=== PATIENT | male | born 1945 | race Caucasian/White ===

== ENCOUNTER → 2024-01-04 10:23 | Outpatient (REF) | payer MEDICARE, SELFPAY ==
[2024-01-04 11:05] LABS: Urine Albumin Negative (Neg - Trace); Urine Bilirubin Negative (Negative); Urine Character Clear (Clear); Urine Color Yellow; Urine Glucose Negative (Negative); Urine Ketone Negative (Negative); Urine Leukocyte Trace (Negative); Urine Nitrite Negative (Negative); Urine Occult Blood Negative (Negative); Urine Specific Gravity 1.015 (<1.030); Urine Urobilinogen Negative (Neg - 1+)
[2024-01-04 11:06] LABS: % Basophils 0.6 % (0-2); % Eosinophils 0.9 % (0-6); % Immature Granulocytes 0.2 % (0-0.5); % Monocytes 7.3 % (1.7-9.3); Absolute Basophils 0.1 10^3/uL (0-0.2); Absolute Eosinophils 0.1 10^3/uL (0-0.7); Absolute Monocytes 0.6 10^3/uL (0.1-0.6); Absolute Neutrophils 5.4 10^3/uL (1.4-6.5); Hematocrit 46.9 % (39.0-52.0); Hemoglobin 15.6 g/dL (13.0-18.0); Mean Corp Hgb Conc. 33.3 g/dL (33.0-37.0); Mean Corpuscular Hgb 30.1 pg (27.0-31.0); Mean Corpuscular Volume 90.5 fL (80.0-94.0); Mean Platelet Volume 9.7 fL (7.4-10.4); Nucleated Red Blood Cells % 0 % (-); Platelet Count 287 10^3/uL (130-400); Red Blood Cell Count 5.18 10^6/uL (4.70-6.10); Red Cell Dist. Width 14.5 % (11.5-14.5); White Blood Cell Count 8.2 10^3/uL (4.8-10.8)
[2024-01-04 11:23] LABS: Urine Mucus Few
[2024-01-04 11:24] LABS: Urine Bacteria Few (Negative)
[2024-01-04 11:26] LABS: Urine Red Blood Cell None Seen /HPF (0-2)
[2024-01-04 11:29] LABS: HDL Cholesterol 62 mg/dl; LDL Cholesterol, Calculated 170 mg/dl; Total Cholesterol 246 mg/dl (50-199); Triglyceride 72 mg/dl (10-149); Very Low Density Lipoprotein 14 mg/dl (0-30)
[2024-01-04 12:00] LABS: PSA, Total - Screen 2.58 ng/ml (0.0-4.0); TSH 1.42 uIU/ml (0.47-4.68)
== END ==
LOC: REG 10:23
PROVIDERS: ATTENDING PHYSICIAN Internal Medicine
DX: D72.829 Elevated white blood cell count, unspecified (principal); E78.2 Mixed hyperlipidemia; Z12.5 Encounter for screening for malignant neoplasm of prostate
CPT/HCPCS: 36415; 80061; 81003; 81015; 84443; 85025; G0103

== ENCOUNTER → 2024-04-10 13:11 | Outpatient (REF) | payer MEDICARE, SELFPAY ==
[2024-04-10 15:05] LABS: % Basophils 0.7 % (0-2); % Eosinophils 1.5 % (0-6); % Immature Granulocytes 0.1 % (0-0.5); % Lymphocytes 30.9 % (20.5-51.1); % Neutrophils 58.8 % (42.2-75.2); Absolute Basophils 0.1 10^3/uL (0-0.2); Absolute Eosinophils 0.1 10^3/uL (0-0.7); Absolute Lymphocytes 2.3 10^3/uL (1.2-3.4); Absolute Monocytes 0.6 10^3/uL (0.1-0.6); Absolute Neutrophils 4.4 10^3/uL (1.4-6.5); Hematocrit 47.5 % (39.0-52.0); Hemoglobin 15.6 g/dL (13.0-18.0); Mean Corp Hgb Conc. 32.8 g/dL (33.0-37.0); Mean Corpuscular Hgb 30.4 pg (27.0-31.0); Mean Corpuscular Volume 92.6 fL (80.0-94.0); Mean Platelet Volume 9.7 fL (7.4-10.4); Nucleated Red Blood Cells % 0 % (-); Platelet Count 306 10^3/uL (130-400); Red Blood Cell Count 5.13 10^6/uL (4.70-6.10); White Blood Cell Count 7.5 10^3/uL (4.8-10.8)
[2024-04-10 15:16] LABS: Blood Urea Nitrogen 18 mg/dl (9-20); Calcium 9.4 mg/dl (8.4-10.2); Carbon Dioxide 30 mmol/L (22-30); Chloride 101 mmol/L (98-107); Glucose 85 mg/dl (70-99); Potassium 4.4 mmol/L (3.5-5.1); Sodium 138 mmol/L (135-145); eGFR > 60.00
== END ==
LOC: REG 13:11
PROVIDERS: ATTENDING PHYSICIAN Orthopaedic Surgery
DX: Z01.818 Encounter for other preprocedural examination (principal)
CPT/HCPCS: 36415; 80048; 85025; 93005

== ENCOUNTER 2024-07-21 11:04 | Emergency (ER) | payer MEDICARE, SELFPAY ==
[2024-07-21 11:05] VITALS: BP 107/67
--- NOTE | 2024-07-21 11:18 | ED.GENMED ---
History of Present Illness
General
Chief Complaint: DVT/Possible Blood Clot
Source: patient
Exam Limitations: none
Time Seen by Provider: 07/21/24 11:11
History of Present Illness
History of Present Illness:
78yoM with a history of a L knee replacement [address] Briscoe presenting for evaluation of left calf pain. He has been experiencing pain in the bottom of his L foot for the past several days. He started to notice a pain in his L calf
this morning. He states it feels like there is a tourniquet on the leg and that his lower leg keeps getting more swollen. Pain is worse with sitting and improves with laying down. He denies any trauma. He is otherwise asymptomatic and denies any
fevers, chills, chest pain, shortness of breath, syncope. No prior history of DVT. He traveled to [place] one month ago.
Past History
Past History
ED Past Medical History: None
ED Past Surgical History: None
Social History
Tobacco: Non-smoker
Alcohol: Occasional
Drug: None
Personal:
Living: with family
Phy Exam
Physical Exam
Physical Exam:
Patient observed ambulating in exam room
General Physical Exam
General Presentation: well appearing
General Skin: warm and dry
General Habitus: normal
General Mental: alert
ENT Exam
ENT Exam: normocephalic
Pulmonary Exam
Pulmonary Exam: no respiratory distress
Neurological Exam
Neurological Exam: alert
[place] Coma Scale
Eye Opening: Spontaneous
Verbal Response: Oriented
Motor Response: Obeys Commands
GCS Total Score: 15
Musculoskeletal Exam
Musculoskeletal Exam: other (L leg: Non-pitting edema noted in calf. L knee mildly swollen which he states is stable since his knee replacement 2 months ago. No erythema/warmth to knee. Able to flex to 90 degrees. No swelling noted in thigh. 2+ DP
pulse and sensation intact. )
Skin Exam
Skin Exam: warm/dry
Psychiatric Exam
Psychiatric Exam: normal mood/affect
Course
Orders/Labs/Results
Orders:
Orders
07/21/24 11:08
Periph Venous Lwr Ext Left US [US Periph Venous LOWER Ext LT] Urgent
Comment: post op knee replacemet
Reason For Exam: pain, swelling
07/21/24 11:18
Oxycodone/Acetaminophen [Percocet 5/325] 1 tablet PO NOW STA
07/21/24 12:24
CR Foot - Left Min 3 Views Urgent
Comment:
Reason For Exam: pain
CR Knee - Left 4 Or More View* Urgent
Comment:
Reason For Exam: pain, recent knee replacement
CR Leg Tibia/fibula Left 2 Vw Urgent
Comment:
Reason For Exam: pain
Vital Signs
Initial and Last Documented VS:
Initial Vital Signs
Temp Pulse Resp BP Pulse Ox
97.3 F 85 20 107/67 99
07/21/24 11:05 07/21/24 11:05 07/21/24 11:05 07/21/24 11:05 07/21/24 11:05
Last Documented Vital Signs
Temp Pulse Resp BP Pulse Ox
97.3 F 74 16 123/73 99
07/21/24 11:05 07/21/24 13:10 07/21/24 13:10 07/21/24 13:10 07/21/24 13:10
MDM/Problems Addressed
Differential Diagnosis Includes:
78yoM here with L calf pain and swelling that started today. Started with pain at the bottom of his foot a few days ago. Denies. Hx of L knee replacement 2 months ago and travel to [place] 1 month ago. No CP/SOB. VSS. There is nonpitting edema to
the L calf on exam. LLE is neurovascularly intact. Differential diagnosis includes but is not limited to: DVT, dependent edema, superficial thrombophlebitis
Initial ED plan: Check venous duplex. Percocet for pain.
*Critical Care Note
Total Time (30-74mins, 75-104mins- exclusive of procedures): Not Applicable
Update Note
Update Note:
Venous duplex negative for DVT. X-rays of knee, foot, and tib-fib added which are negative for fractures. No large joint effusion noted and there is no evidence of a periprosthetic complication. Patient is stable for discharge. Supportive care
reviewed including elevation and compression. He was advised to follow-up with his PCP and orthopedic surgeon. Patient in agreement with plan and was discharged in stable condition.
ED Attending Note
-
Portions of this chart may have been created with voice recognition software.� Occasional wrong word or��sound alike� substitutions may have occurred due to the inherent limitations of voice recognition software.
Discharge Plan
Departure
Patient Disposition: Home (Routine Discharge)
Date of Disposition: 07/21/24
Time of Disposition: 14:20
Patient with high blood pressure during this ER visit?: No
Discharge Problem:
Pain of left calf
Instructions: Muscle, joint, and bone pain - Discharge instructions
Prescriptions:
No Action
valacyclovir [Valtrex] 1,000 MG tablet
1,000 mg PO TID Qty: 21 0RF
prednisone 50 MG tablet
50 mg PO NOW Qty: 6 0RF
Referrals:
Joey Green DO [Family Provider] -
Activity Restrictions/Additional Instructions:
Elevate your leg and wear compression stockings to help with swelling. Take ibuprofen as needed for pain.
Please follow-up with your family doctor and orthopedist. Return to the ER with any new or worsening symptoms.
Interventions
Interventions:
*Risk Screen - Suicide Last Done: 07/21/24 11:05
*General Assessment Last Done: 07/21/24 11:05
*Neglect/Abuse Screening Last Done: 07/21/24 11:31
*ED- Fall Risk Assessment Last Done: 07/21/24 11:31
*ED COVID-19 Vaccine History Last Done: 07/21/24 11:31
*Nursing Disposition Last Done: 07/21/24 14:27
ED- Cardiac Assessment Last Done: 07/21/24 11:31
ED- Pulmonary Assessment Last Done: 07/21/24 11:31
ED-Peripheral Vascular Assessment Last Done: 07/21/24 11:31
ED-Skin Assessment Last Done: 07/21/24 11:31
Discharge Date and Time
Discharge Date/Time: 07/21/24 14:27
Print Language: SAMMARINESE
[2024-07-21] MEDS: PERCOCET 5/325 1 TABLET PO (12:00)
[2024-07-21 12:01] VITALS: BMI 25.5
[2024-07-21 13:10] VITALS: BP 123/73
== END 2024-07-21 14:27 | disposition home or self-care (01) ==
LOC: EMR 11:04
PROVIDERS: EMERGENCY PHYSICIAN Emergency Medicine; FAMILY PHYSICIAN Internal Medicine
DX: M79.662 Pain in left lower leg (principal); Z96.652 Presence of left artificial knee joint
CPT/HCPCS: 99284; 73564; 73590; 73630; 93971

== ENCOUNTER → 2024-11-28 10:39 | Outpatient (REF) | payer MEDICARE, SELFPAY | LOC: REG 10:39 | PROVIDERS: ATTENDING PHYSICIAN Nurse Practitioner Family | DX: M54.16 Radiculopathy, lumbar region (principal) | CPT/HCPCS: 72110 ==

== ENCOUNTER → 2024-12-29 11:00 | Outpatient (REF) | payer MEDICARE, SELFPAY ==
[2024-12-29 12:19] LABS: Urine Character Clear (Clear)
[2024-12-29 12:24] LABS: Hematocrit 45.6 % (39.0-52.0); Hemoglobin 15.1 g/dL (13.0-18.0); Mean Corp Hgb Conc. 33.1 g/dL (33.0-37.0); Mean Corpuscular Volume 90.3 fL (80.0-94.0); Nucleated Red Blood Cells % 0 % (-); Platelet Count 270 10^3/uL (130-400); Red Cell Dist. Width 14.5 % (11.5-14.5)
[2024-12-29 12:27] LABS: Urine Red Blood Cell 0-2 /HPF (0-2); Urine Squamous Cell 0-2 /LPF (Few)
[2024-12-29 12:50] LABS: HDL Cholesterol 69 mg/dl; LDL Cholesterol, Calculated 138 mg/dl; Very Low Density Lipoprotein 14 mg/dl (0-30)
[2024-12-29 13:24] LABS: PSA, Total - Screen 2.81 ng/ml (0.0-4.0); TSH 1.30 uIU/ml (0.47-4.68)
== END ==
LOC: REG 11:00
PROVIDERS: ATTENDING PHYSICIAN Internal Medicine
DX: E78.2 Mixed hyperlipidemia (principal); Z12.5 Encounter for screening for malignant neoplasm of prostate; N52.9 Male erectile dysfunction, unspecified
CPT/HCPCS: 36415; 80061; 81003; 81015; 84443; 85025; G0103